=== PATIENT | male | born 1980 | race Caucasian/White ===

== ENCOUNTER 2018-12-07 22:24 | Emergency (ER) | payer OTHER | END 2018-12-07 23:45 | disposition home or self-care (01) | LOC: JER 22:24 ==

== ENCOUNTER 2020-07-16 11:31 | Emergency (ER) | payer SELFPAY ==
[2020-07-16 11:41] VITALS: BP 126/76; PULSE 82; TEMP 97.3; BMI 30.3
== END 2020-07-16 12:05 | disposition home or self-care (01) ==
LOC: JER 11:31
DX: M79.672 Pain in left foot (principal)
CPT/HCPCS: 99282-25; C9803; U0003

== ENCOUNTER 2021-05-07 12:29 | Emergency (ER) | payer OTHER ==
[2021-05-07 12:40] VITALS: BP 116/79; PULSE 98; TEMP 97.8; BMI 29.9
[2021-05-08] MEDS ORDERED: TETRACAINE 0.5% OPHTH SOLN 2 ML BOTTLE ONE (08:58)
== END 2021-05-07 14:01 | disposition home or self-care (01) ==
LOC: JERFT 12:29
DX: Z76.0 Encounter for issue of repeat prescription (principal)
CPT/HCPCS: 99282-25

== ENCOUNTER 2023-01-20 14:44 | Emergency (ER) | payer OTHER ==
[2023-01-20] MEDS ORDERED: DIPHTH,PERTUSS(ACELL),TET 0.5 ML DISP.SYRIN IM ONE ×2 (14:56→15:23)
[2023-01-20 15:06] VITALS: BP 126/72; PULSE 81; RESP 18; TEMP 98.7; BMI 30.9
== END 2023-01-20 15:39 | disposition home or self-care (01) ==
LOC: FER 14:44
PROC: 0HQGXZZ Repair Left Hand Skin, External Approach (ICD-10-PCS; principal; 2023-01-20)
PROC: 3E0234Z Introduction of Serum, Toxoid and Vaccine into Muscle, Percutaneous Approach (ICD-10-PCS; 2023-01-20)
DX: S61.412A Laceration without foreign body of left hand, initial encounter (principal); W26.8XXA Contact with other sharp object(s), not elsewhere classified, initial encounter; Y93.89 Activity, other specified; Y92.9 Unspecified place or not applicable
CPT/HCPCS: 12001-25; 90471; 90715; 99282-25

== ENCOUNTER 2023-05-18 14:18 | Emergency (ER) | payer OTHER ==
[2023-05-18 14:30] VITALS: TEMP 98; BMI 31.1
[2023-05-18] MEDS ORDERED: SODIUM CHLORIDE 0.9% 500 ML INFUS.BAG IV ONE (15:00)
[2023-05-18] MEDS ORDERED: ACETAMINOPHEN 1000 MG/100 ML BAG IVPB ONE (15:00)
[2023-05-18] MEDS ORDERED: KETOROLAC TROMETHAMINE 30 MG/1 ML VIAL IVPUSH ONE (15:00)
[2023-05-18] MEDS ORDERED: METOCLOPRAMIDE HCL INJECTION 10 MG/2 ML VIAL IVPUSH ONE (15:01)
[2023-05-18 15:40] LABS: BASO % 0.4 % (0-2.0); EOS % 0.2 % (0-4.5); HEMATOCRIT 41.4 % (35.4-49); HEMOGLOBIN 13.6 GM/dL (11.7-16.9); MCH 26.5 pg (25.7-33.7); MCHC 32.8 g/dl (32.0-35.9); MEAN CELL VOLUME 80.6 fl (80-96); MEAN PLT VOLUME 7.9 fl (7.5-11.1); MONO % 4.7 % (3.8-10.2); NEUT % 74.7 % (42.8-82.8); PLATELET COUNT 245 10^3/uL (134-434); RBC 5.14 M/mm3 (4.00-5.60); RDW 12.9 % (11.9-15.9); WHITE BLOOD COUNT 10.7 K/mm3 (4.0-10.0)
[2023-05-18 16:00] LABS: POTASSIUM 4.2 mmol/L (3.5-5.1)
[2023-05-18 16:01] LABS: CALCIUM 9.5 mg/dL (8.5-10.1)
[2023-05-18 16:02] LABS: BLOOD UREA NITROGEN 22.5 mg/dL (7-18)
[2023-05-18 16:05] LABS: CREATININE 0.8 mg/dL (0.55-1.3)
[2023-05-18 16:55] VITALS: BP 116/63; PULSE 97; RESP 20
== END 2023-05-18 17:28 | disposition home or self-care (01) ==
LOC: JER 14:18
PROC: 0HQ0XZZ Repair Scalp Skin, External Approach (ICD-10-PCS; principal; 2023-05-18)
DX: R51.9 Headache, unspecified (principal); S06.0X9S Concussion with loss of consciousness of unspecified duration, sequela; G47.00 Insomnia, unspecified; S01.01XA Laceration without foreign body of scalp, initial encounter
CPT/HCPCS: 36415; 70450-TC; 80048; 85025; 99284-25

== ENCOUNTER 2023-06-04 13:56 | Emergency (ER) | payer OTHER ==
[2023-06-04 14:10] VITALS: BP 115/66; PULSE 94; RESP 18; TEMP 97.8; BMI 22.4
== END 2023-06-04 14:40 | disposition home or self-care (01) ==
LOC: JERFT 13:56
DX: Z76.0 Encounter for issue of repeat prescription (principal)
CPT/HCPCS: 99281-25

== ENCOUNTER 2024-10-07 20:10 | Emergency (ER) | payer OTHER ==
[2024-10-07 20:24] VITALS: TEMP 98.6; BMI 28.0
[2024-10-07] MEDS ORDERED: ACETAMINOPHEN INJECTION 100 ML ONE (20:52)
[2024-10-07] MEDS: SODIUM CHLORIDE 0.9% 500 ML INFUS.BAG IV ONE (20:54)
[2024-10-07 20:58] LABS: ABSOLUTE IMMATURE GRANULOCYTES 0.03 x10^3/uL (0.0-0.031); BASOPHILS # 0.03 x10^3/uL (0.01-0.08); EOSINOPHIL % 0.9 % (0.8-7.0); EOSINOPHILS # 0.05 x10^3/uL (0.04-0.54); HEMATOCRIT 39.8 % (40.1-51.0); HEMOGLOBIN 12.8 g/dL (13.7-17.5); MCHC 32.2 g/dl (32.3-36.5); MEAN CELL VOLUME 82.2 fl (79.0-92.2); MONOCYTE % 9.4 % (5.3-12.2); PLATELET COUNT 199 x10^3/uL (163-337); RDW 11.9 % (12.1-15.9)
[2024-10-07] MEDS: ACETAMINOPHEN 1000 MG/100 ML BAG IVPB ONE (21:00)
[2024-10-07] MEDS ORDERED: IBUPROFEN 600 MG TABLET (FP) PO ONE (21:01)
[2024-10-07] MEDS: IBUPROFEN 600 MG TABLET (FP) PO ONE (21:03)
[2024-10-07 21:15] LABS: POTASSIUM 4.3 mmol/L (3.5-5.1)
[2024-10-07 21:17] LABS: ALBUMIN 3.8 g/dl (3.4-5.0); BLOOD UREA NITROGEN 24.1 mg/dL (7-18)
[2024-10-07 21:20] LABS: CREATININE 0.9 mg/dL (0.55-1.3)
[2024-10-07 21:22] LABS: BILIRUBIN,TOTAL 0.3 mg/dL (0.2-1); TOT PROT 6.4 g/dl (6.4-8.2)
[2024-10-07 21:59] VITALS: BP 119/78; PULSE 95; RESP 20
== END 2024-10-07 22:00 | disposition home or self-care (01) ==
LOC: JER 20:10
DX: U07.1 COVID-19 (principal); R42 Dizziness and giddiness; R51.9 Headache, unspecified; R06.02 Shortness of breath; R53.1 Weakness; R07.9 Chest pain, unspecified; M79.10 Myalgia, unspecified site; R00.0 Tachycardia, unspecified
CPT/HCPCS: 0241U-QW; 36415; 80053; 84484; 85025; 93005; 93010; 99284-25